=== PATIENT | male | born 1995 | race Hispanic/Latino ===

== ENCOUNTER 2025-06-21 06:13 | Day surgery (SDC) | payer BC ==
[2025-06-16 10:30] VITALS: BMI 38.6
[2025-06-21] MEDS ORDERED: AFRIN NASAL MIST 15 ML BOT ONE ×2 (06:38→06:57)
[2025-06-21] MEDS ORDERED: Bacitracin 1 PK ONE (06:57)
[2025-06-21] MEDS ORDERED: Lidocaine 1% w/Epinephrine 1:200K 30 ML VIAL ONE (06:57)
[2025-06-21] MEDS ORDERED: Lidocaine 4% PF 5 ML AMP ONE (07:00)
[2025-06-21] MEDS ORDERED: PROPOFOL 40 ML ONE (07:00)
[2025-06-21] MEDS ORDERED: Rocuronium Bromide 10 MG/ML (10ML VIAL) ONE (07:01)
[2025-06-21] MEDS ORDERED: Lidocaine 1% PF 5 ML VIAL ONE (07:01)
[2025-06-21] MEDS ORDERED: Oxymetazoline HCl 0.05% (15 ML) ONE (07:41)
[2025-06-21] MEDS ORDERED: PHENYLEPHRINE-NS 100 MCG/ML 10 ML SYRINGE ONE (07:49)
[2025-06-21] MEDS ORDERED: Ondansetron PF 4 MG/2 ML Vial ONE (08:09)
[2025-06-21] MEDS ORDERED: SUGAMMADEX SODIUM 200 MG/2 ML VIAL ONE (08:24)
[2025-06-21] MEDS ORDERED: HYDROcodone/Acetaminophen 5/325 mg Tablet ONE (09:23)
== END 2025-06-21 09:43 | disposition home or self-care (01) ==
LOC: CSHSDC 06:13
PROVIDERS: ATTEND Otolaryngology Plastic Surgery within the Head & Neck
PROC: 09B Ear, Nose, Sinus, Excision (ICD-10-PCS; principal; 2025-06-21)
PROC: 09B Ear, Nose, Sinus, Excision (ICD-10-PCS; principal; 2025-06-21)
PROC: 09BM8ZZ Excision of Nasal Septum, Via Natural or Artificial Opening Endoscopic (ICD-10-PCS; principal; 2025-06-21)
DX: J34.2 Deviated nasal septum (principal); J34.3 Hypertrophy of nasal turbinates; J32.0 Chronic maxillary sinusitis; J32.2 Chronic ethmoidal sinusitis; G47.33 Obstructive sleep apnea (adult) (pediatric); J35.1 Hypertrophy of tonsils
CPT/HCPCS: J1010; J1100; J2405; J2704; J3010